=== PATIENT | female | born 1985 | race Two or more races ===

== ENCOUNTER 2019-12-27 11:04 | Emergency (ER) | payer OTHER ==
[~2019-12-27] VITALS: Ht 154.9 cm; Wt 57.2 kg
--- NOTE | 2019-12-27 13:12 | RAD ---
CHEST PA LATERAL History: Cough, shortness of breath Comparison: None. Findings: Frontal and lateral views of the chest were obtained. The cardiomediastinal silhouette is normal. Pulmonary vasculature is normal. The lungs are clear. No pleural effusion or pneumothorax is seen. There is no acute bone abnormality. IMPRESSION: No acute cardiopulmonary process. Electronically signed by: Henry Anaya MD (12/27/2019 1:09 PM) [id number]
[2019-12-27] MEDS ORDERED: ALBU2.5V8 INH (14:12)
--- NOTE | 2019-12-27 14:12 | PHYS DOC ---
Past Medical History Past Medical History: No Pertinent History Past Surgical History: Tubal ligation Smoking Status: Never Smoker Alcohol Use: None Adult General Chief Complaint Chief Complaint: SHORTNESS OF BREATH HPI HPI Patient is a 34 year old female with no medical history who presents to the ED today complaining of a cough for 3 months. Patient denies any chest pain. Reports she had shortness of breath last night and was wheezing as the reason she came to the ED today. Denies any shortness of breath and wheezing right now. Review of Systems Review of Systems Constitutional: Denies fever or chills [] Eyes: Denies change in visual acuity, redness, or eye pain [] HENT: Denies nasal congestion or sore throat [] Respiratory: Reports cough, wheezing and shortness of breath [] Cardiovascular: No additional information not addressed in HPI [] GI: Denies abdominal pain, nausea, vomiting, bloody stools or diarrhea [] : Denies dysuria or hematuria [] Musculoskeletal: Denies back pain or joint pain [] Integument: Denies rash or skin lesions [] Neurologic: Denies headache, focal weakness or sensory changes [] All other systems were reviewed and found to be within normal limits, except as documented in this note. Allergies Allergies Allergies Coded Allergies Type Severity Reaction Last Updated Verified No Known Drug Allergies 12/27/19 No Physical Exam Physical Exam Constitutional: Well developed, well nourished, no acute distress, non-toxic appearance. [] HENT: Normocephalic, atraumatic, bilateral external ears normal, oropharynx moist, no oral exudates, nose normal. [] Eyes: PERRLA, EOMI, conjunctiva normal, no discharge. [] Neck: Normal range of motion, no tenderness, supple, no stridor. [] Cardiovascular:Heart rate regular rhythm, no murmur [] Lungs & Thorax: Bilateral breath sounds clear to auscultation [] Abdomen: Bowel sounds normal, soft, no tenderness, no masses, no pulsatile masses. [] Skin: Warm, dry, no erythema, no rash. [] Back: No tenderness, no CVA tenderness. [] Extremities: No tenderness, no cyanosis, no clubbing, ROM intact, no edema. [] Neurologic: Alert and oriented X 3, normal motor function, normal sensory function, no focal deficits noted. [] Psychologic: Affect normal, judgement normal, mood normal. [] Current Patient Data Vital Signs Vital Signs Date Time Temp Pulse Resp B/P (MAP) Pulse Ox O2 Delivery O2 Flow Rate FiO2 12/27/19 12:30 98.1 79 16 115/69 (84) 100 Room Air 98.1 EKG EKG [] Radiology/Procedures Radiology/Procedures []PROCEDURE: CHEST PA & LATERAL CHEST PA LATERAL History: Cough, shortness of breath Comparison: None. Findings: Frontal and lateral views of the chest were obtained. The cardiomediastinal silhouette is normal. Pulmonary vasculature is normal. The lungs are clear. No pleural effusion or pneumothorax is seen. There is no acute bone abnormality. IMPRESSION: No acute cardiopulmonary process. Electronically signed by: Narendra Hylton MD (12/27/2019 1:09 PM) [id number] DICTATED and SIGNED BY: NARENDRA HYLTON MD DATE: 12/27/19 1309 Course & Med Decision Making Course & Med Decision Making Pertinent Labs and Imaging studies reviewed. (See chart for details) That began 3 months ago and an episode of wheezing and shortness of breath last night. Chest x-ray interpreted by radiologist is negative for any acute findings. O2 sats have been 97% on room air and above, heart rate in the 80s PERC score is 0. Lungs are clear. Patient was given albuterol inhaler prescript ion to use as needed. Follow-up with primary care doctor in one week. Dragon Disclaimer Dragon Disclaimer This electronic medical record was generated, in whole or in part, using a voice recognition dictation system. Departure Departure Impression: Primary Impression: Cough Additional Impression: Shortness of breath Disposition: 01 HOME, SELF-CARE Condition: STABLE Referrals: GWENDOLYN ALVAREZ CLINICAL NURSE REVIEWER (PCP) follow up in 1-2 weeks Patient Instructions: Cough, Adult, [id number], Shortness of Breath, [id number] Additional Instructions: You were evaluated in the emergency room for cough and wheezing and shortness of breath. Your chest x-ray is negative for any acute findings. Please use the prescribed inhaler as needed. 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
[2019-12-27 14:30] VITALS: BP 110/63
== END 2019-12-27 14:44 | disposition home or self-care (01) ==
LOC: ER 11:04
DX: R05 Cough (principal); R06.02 Shortness of breath; R06.2 Wheezing; Z98.51 Tubal ligation status
CPT/HCPCS: 71046; 99283